=== PATIENT | male | born 1970 | race African-American/Black ===

== ENCOUNTER 2021-01-15 07:37 | Outpatient (CLI) | payer MEDICARE ==
[2021-01-15 17:48] LABS: SARS-CoV-2 PCR by NAA Not Detected (NotDetected)
== END 2021-01-15 07:38 | disposition home or self-care (01) ==
LOC: CSHLAB 07:37
PROVIDERS: ATTEND Internal Medicine Gastroenterology
DX: Z20.822 Contact with and (suspected) exposure to COVID-19 (principal); Z12.11 Encounter for screening for malignant neoplasm of colon
CPT/HCPCS: 87635; U0003; U0005